=== PATIENT | female | born 1965 | race Caucasian/White ===

== ENCOUNTER 2016-12-11 10:49 | Day surgery (SDC) | payer OTHER ==
[~2016-12-11] VITALS: Ht 165.1 cm; Wt 80.0 kg
[~2016-12-11 10:49] MED LIST: DOCU-144 PO; HYDR-762 PO; INSU100V27 SC; LANT3I SC; ONDA4TAB35 PO
[2016-12-11 12:43] VITALS: Ht 165.1 cm; Wt 80.0 kg
[2016-12-11] MEDS ORDERED: PROPOFOL 40 ML ONE (13:12)
[2016-12-11 13:15] VITALS: BP 134/76; PULSE 74; RESP 10
--- NOTE | 2016-12-11 14:14 | OPR ---
DATE OF OPERATION: 12/11/2016 PREOPERATIVE DIAGNOSES: 1. History of rectosigmoid colon cancer. 2. Blood in stool. POSTPROCEDURE DIAGNOSES: 1. History of rectosigmoid colon cancer. 2. Blood in stool. PROCEDURES PERFORMED: Colonoscopy performed (colonoscopy incomplete). ENDOSCOPIST: Dr. Vini Syed MD ANESTHESIA: General anesthetic using IV propofol. COLONOSCOPIC FINDINGS: The patient was found to have her entire colon full of formed stool that we were able to intubate the patient's cecum, was unable to do a complete colonoscopy due to the very p oor bowel prep. DESCRIPTION OF PROCEDURE: The patient was brought to the endoscopy suite and placed in left lateral decubitus position. Next, after successful administration of general anesthetic using IV propofol by the staff anesthesiologist, a digital rectal examination was performed. This examination reveale d a small amount of formed stool in the patient's rectum. Next, an adult colonoscope was inserted i nto the patient's anus and passed proximally all the way the patient's cecum. Unfortunately, throug hout the patient's entire colon she was found to have formed stool, except in the cecum, where a sma ll amount of liquid stool was found. The patient's at the appendiceal orifice and ileocecal valve w ere easily identified. The colonoscope was carefully withdrawn, and we examined the patient's cecum , ascending, transverse, descending, and sigmoid colon ____ due to large amount of stool in the victorino ent's colon, I was unable to do an adequate examination. The colonoscope was then withdrawn to the patient's rectum which was found to have a moderate amount of formed stool as well. The colonoscop e was removed without event. She was awoken from anesthesia. Following the procedure, the patient was given standard post-colonoscopy instructions, as well as i nstructions to follow up in my office to discuss rescheduling a colonoscopy due to her Incomplete co lonoscopy today because of her poor prep. Dictated By: VINI MARTINEZ/LEANDRA Conf#: [id number] DID#: [id number] CC: VINI SYED MD;*EndCC*
[2016-12-11 14:15] VITALS: BP 128/71; RESP 20
== END 2016-12-11 14:24 | disposition home or self-care (01) ==
LOC: GIL 10:49 → SDS 10:49 → GIL 10:52 → SDS 10:52 → GIL 14:24
PROVIDERS: ATTEND Colon & Rectal Surgery
DX: K92.1 Melena (principal); Z85.038 Personal history of other malignant neoplasm of large intestine; E11.9 Type 2 diabetes mellitus without complications; E66.9 Obesity, unspecified; Z68.28 Body mass index [BMI] 28.0-28.9, adult
CPT/HCPCS: 45330; Z7610

== ENCOUNTER 2017-04-02 07:43 | Day surgery (SDC) | payer OTHER ==
[~2017-04-02] VITALS: Ht 167.6 cm; Wt 84.3 kg
[2017-04-02 08:16] VITALS: Ht 167.6 cm; Wt 84.3 kg
[2017-04-02 08:34] VITALS: BP 135/66; PULSE 79; RESP 14
[2017-04-02] MEDS ORDERED: PROPOFOL 40 ML ONE (09:24)
[2017-04-02] MEDS ORDERED: LIDOCAINE 2% (SDV) 5 ML INJ ONE (09:24)
--- NOTE | 2017-04-02 09:34 | HPN ---
Date/Time of Note Date/Time of Note DATE: 04/02/17 TIME: 09:34 Interval H&P Admission Note Pt. seen H&P reviewed: No system changes VINI PATEL MD Apr 02, 2017 09:34
[2017-04-02] MEDS ORDERED: PROPOFOL 20 ML ONE (10:36)
--- NOTE | 2017-04-02 10:45 | OPPN ---
Date/Time of Note Date/Time of Note DATE: 04/02/17 TIME: 10:26 Proc Note GI Procedure date: Apr 02, 2017 Pre-procedure Diagnosis History of colon cancer Post-procedure Diagnosis 1. History of colon cancer 2. Ascending colon polyp 3. Polyp at 35 cm 4. Polyp at 8 cm 5. Anastomosis at 8 cm Operation Performed Colonoscopy with polypectomy by hot snare, polypectomy using jumbo forceps Surgeon: VINI SYED MD Anesthesia Type: MAC Anesthesiologist: SHAUNNA HOFFMAN MD Estimated blood loss: minimal Specimens Ascending colon polyp, polyp at 35 cm, polyp at 8 cm Complications: no Pt Condition post procedure: stable Disposition: PACU Procedure Description The patient was brought to the endoscopy suite and placed in the left lateral decubitus position. Next, after a surgical "time out," general anesthesia was administered by Dr. Hoffman using IV propofol. Then, after adequate sedation was achieved, I performed a digital rectal examination using a lubricated finger. No masses were palpated. Next, a lubricated colonoscope was inserted into the patient's anus and passed proximally to the patient's cecum. Her prep was good except for some semiformed stool in the cecum. After thurough irrigation and suctioning, the cecum was cleared and both the ileocecal valve and appendiceal orifice was visualized. Next, the colonoscope was carefully withdrawn and the cecum, ascending, transverse and descending colon were visualized. Only abnormalities seen were a 4 cm sessile ascending colon polyp and a 5 mm pedunculated polyp at 35 cm from the anal verge. The ascending colon polyp was removed using a jumbo forceps and the polyp at 35 cm was removed using the hot snare technique. Once hemostasis was assured, the I continued to carefully withdraw the colonoscope and an anastomosis was seen between the descending colon and rectum at 8 cm from the anastomosis. It was not stenotic. A 4 mm pedunculated polyp was found at the anastomosis and this too was removed using the hot snare technique. No bleeding was seen. The remaining rectum was visualized and was found to be normal. The colonoscope was then withdrawn from the patient without difficulty. Next, the patient was awoken from anesthesia and transferred to the PACU. She was given standard post polypectomy instructions and instructed to f/u with Dr. Syed in 1 week. The procedure was tolerated well. VINI SYED MD Apr 02, 2017 10:45
[2017-04-02 11:05] VITALS: BP 138/89; PULSE 76; RESP 14
--- NOTE | 2017-04-05 14:50 | HP ---
Date/Time of Note Date/Time of Note DATE: 04/05/17 TIME: 14:46 Assessment/Plan VTE Prophylaxis VTE Prophylaxis Intervention: contraindicated Lines/Catheters IV C[facility]ter Type (from [facility]): Peripheral IV Assessment/Plan Chief Complaint/Hosp Course History of colon cancer. Problems: Assessment/Plan Ms. Tucker has a history of colon cancer. She presents for a screening colonoscopy. Informed consent obtained. HPI/ROS Admit Date/Time Admit Date/Time Hx of Present Illness Ms. Tucker has a history of colon cancer and presents for a surveillance colonoscopy. A previous attempt at this failed due to a poor prep. ROS Constitutional: improved, no complaints Eyes: no complaints ENT: no complaints Respiratory: no complaints Cardiovascular: no complaints Gastrointestinal: other (fecal incontinence) Genitourinary: no complaints Musculoskeletal: no complaints Skin: no complaints Neurologic: no complaints Psychological: nl mood/affect, no complaints PMH/Family/Social Past Medical History rectosigmoid cancer Past Surgical History Rectosigmoid colon resection Social History Alcohol Use: none Smoking Status: Never smoker Drug Use: none Exam/Review of Systems Vital Signs Vitals Vital Signs Date Time Temp Pulse Resp B/P Pulse Ox O2 Delivery O2 Flow Rate FiO2 04/02/17 11:05 76 14 138/89 98 Room Air 04/02/17 08:34 98.1 Exam Constitutional: alert, oriented, well developed Psych: nl mood/affect, no complaints Head: atraumatic, normocephalic Eyes: EOMI, PERRL, nl conjunctiva, nl lids, nl sclera Neck: non-tender, supple Respiratory: clear to auscultation, normal air movement Cardiovascular: nl pulses, regular rate and rhythm Gastrointestinal: nl liver, spleen, non-tender, soft Musculoskeletal: nl extremities to inspection Extremities: normal pulses Skin: nl turgor, No rash or lesions VINI PATEL MD Apr 05, 2017 14:50
== END 2017-04-02 15:24 | disposition home or self-care (01) ==
LOC: GIL 07:43
PROVIDERS: ATTEND Colon & Rectal Surgery
DX: D12.2 Benign neoplasm of ascending colon (principal); K63.5 Polyp of colon; Z85.038 Personal history of other malignant neoplasm of large intestine; E11.9 Type 2 diabetes mellitus without complications
CPT/HCPCS: 45385; 82962; 88305; Z7610